=== PATIENT | male | born 1940 | race Caucasian/White ===

== ENCOUNTER 2022-12-01 11:02 | Emergency (ER) | payer MEDICARE, OTHER ==
[~2022-12-01] VITALS: Ht 167.6 cm; Wt 170.0 kg
[~2022-12-01 11:02] MED LIST: AMLO5TAB16 PO; ASPI-1264 PO; CHOL100017 PO; HYDR-3972 PO; LOSA25TA96 PO; OMEG-145 PO; ONDA4TAB12 PO; PANT40TA54 PO; POTA-207 PO; SIMV-42 PO
[2022-12-01 13:12] VITALS: BP 158/76
--- NOTE | 2022-12-01 14:00 | NUR ---
Pt given gait testing by trading analyst student and was able to ambulate about 10ft. Pt did request Tylenol for pain 04/22, and per MD order, was given 650mg. Pt states his pain is 4/10 when he sits and 8/10 when he stands.
[2022-12-01] MEDS ORDERED: acetaminophen 325mg tablet PO ONE (14:15)
== END 2022-12-01 14:50 | disposition home or self-care (01) ==
LOC: ER 11:02
DX: M25.551 Pain in right hip (principal); E78.00 Pure hypercholesterolemia, unspecified; I10 Essential (primary) hypertension; M19.90 Unspecified osteoarthritis, unspecified site; G89.29 Other chronic pain; Z72.89 Other problems related to lifestyle; Z98.890 Other specified postprocedural states; Z88.0 Allergy status to penicillin; Z88.8 Allergy status to other drugs, medicaments and biological substances; Z91.012 Allergy to eggs; Z79.899 Other long term (current) drug therapy
CPT/HCPCS: 73502; 99284

== ENCOUNTER 2022-12-02 23:38 | Emergency (ER) | payer MEDICARE, OTHER ==
[~2022-12-02] VITALS: Ht 167.6 cm; Wt 77.2 kg
[2022-12-03 00:22] VITALS: BP 124/80
[2022-12-03] MEDS ORDERED: ondansetron/PF 4mg/2ml inj IV ONE (00:30)
[2022-12-03] MEDS ORDERED: morphine 2 MG/ML inj. syringe IV ONE (00:30)
[2022-12-03] MEDS ORDERED: diazepam 5mg tablet PO ONE (01:30)
== END 2022-12-03 02:04 | disposition home or self-care (01) ==
LOC: ER 23:39
DX: M25.551 Pain in right hip (principal); I10 Essential (primary) hypertension; E78.00 Pure hypercholesterolemia, unspecified; M19.90 Unspecified osteoarthritis, unspecified site; G89.29 Other chronic pain; M54.50 Low back pain, unspecified; Z88.0 Allergy status to penicillin; Z88.4 Allergy status to anesthetic agent; Z91.012 Allergy to eggs
CPT/HCPCS: 73502; 96374; 96375; 99284; J2270; J2405

== ENCOUNTER 2024-12-22 14:33 | Inpatient (IN) | payer MEDICARE, OTHER ==
[~2024-12-22] VITALS: Ht 175.3 cm; Wt 80.0 kg
[~2024-12-22 14:33] MED LIST changes: +LOSA-415 PO; -LOSA25TA96 PO; +ONDA-243 PO; -ONDA4TAB12 PO
[2024-12-22] MEDS ORDERED: iohexol 350MG/ML 100ml bottle IV ONE (15:21)
[2024-12-22 15:22] LABS: BASOPHILS % (AUTO) 0.8 % (0-1); EOSINOPHILS # (AUTO) 0.1 X10'3 (0-0.9); EOSINOPHILS % (AUTO) 1.5 % (0-6); HEMATOCRIT 45.4 % (42.0-52.0); HEMOGLOBIN 15.4 g/dl (14.0-17.9); LYMPHOCYTES # (AUTO) 1.1 X10'3 (1.1-4.8); LYMPHOCYTES % (AUTO) 23.7 % (21-51); MEAN CORPUSCULAR HEMOGLOBIN 30.1 PG (27.0-31.0); MEAN CORPUSCULAR VOLUME 88.8 FL (78-98); MONOCYTES # (AUTO) 0.3 X10'3 (0-0.9); MONOCYTES % (AUTO) 6.8 % (2-12); NEUTROPHILS # (AUTO) 3.2 X10'3 (1.8-7.7); NEUTROPHILS % (AUTO) 67.2 % (42-75); PLATELET COUNT 197 X10'3 (140-440); RED BLOOD COUNT 5.11 X10'6 (4.70-6.10); WHITE BLOOD COUNT 4.8 X10'3 (4.5-11.0)
[2024-12-22 15:36] LABS: APTT 27 SECONDS (22-32); INR 0.9 INR; PROTHROMBIN TIME 9.9 SECONDS (9.0-12.0)
[2024-12-22 15:41] LABS: ANION GAP 9 (8-16); BLOOD UREA NITROGEN 16 MG/DL (7-18); BUN/CREATININE RATIO 18.6 (10.0-20.0); CALCIUM 9.1 MG/DL (8.5-10.1); CHLORIDE 103 MMOL/L (99-107); CREATININE 0.86 MG/DL (0.60-1.10); GLUCOSE 98 MG/DL (70-104); POTASSIUM 3.8 MMOL/L (3.5-5.1); SODIUM 140 MMOL/L (135-145); TOTAL CARBON DIOXIDE 27.8 MMOL/L (24-32); eCRCL 64 ML/MIN; eGFR 85 ML/MIN
[2024-12-22] MEDS ORDERED: mag hydrox/Alum hydrox/simeth 30ml oral suspension PO PRN (18:25)
[2024-12-22] MEDS ORDERED: acetaminophen 325mg tablet PO PRN (18:25)
[2024-12-22] MEDS ORDERED: ondansetron/PF 4mg/2ml inj IV PRN (18:25)
[2024-12-22] MEDS ORDERED: magnesium hydroxide 30ml (MOM) UD suspension PO PRN (18:25)
[2024-12-22] MEDS ORDERED: magnesium sulf-water 4G/100mL 100 ML IV PRN (18:25)
[2024-12-22] MEDS ORDERED: potassium Cl 20 mEq SR tablet PO PRN (18:25)
[2024-12-22] MEDS ORDERED: potassium Cl 40MEQ/1/2NS 520ml 520 ML IV PRN (18:25)
[2024-12-22] MEDS ORDERED: magnesium Cl slow-release 64mg tablet PO PRN (18:25)
[2024-12-22] MEDS: aspirin 81mg, enteric-coated 1 TAB TABLET.DR PO ONE (18:25)
[2024-12-22] MEDS ORDERED: magnesium sulf-water 2g/50mL 50 ML IV PRN (18:25)
[2024-12-22] MEDS: docusate sod 100mg capsule PO SCH (20:00)
[2024-12-22] MEDS: labetalol 20mg/4ml (5mg/ml) syringe IV STA (20:25)
[2024-12-22 20:49] LABS: BILIRUBIN,URINE NEGATIVE (Neg); CLARITY,URINE CLEAR (Clear); COLOR,URINE YELLOW (Yellow); GLUCOSE, URINE NEGATIVE (Neg); KETONES,URINE NEGATIVE (Neg); LEUKOCYTE ESTERASE ,URINE NEGATIVE (Neg); NITRITES, URINE NEGATIVE (Neg); OCCULT BLOOD,URINE TRACE-INTACT (Neg); PROTEIN,URINE NEGATIVE (Neg)
[2024-12-22 20:52] LABS: UA COLLECTION TYPE CLN CATCH MIDSTREAM
[2024-12-22 20:55] LABS: BACTERIA,URINE FEW /HPF (Neg); RBC,URINE 0-2 /HPF (0-2); SQUAMOUS EPITHELIAL CELL,UR FEW /LPF (FEW); WBC,URINE 0-4 /HPF (0-4)
[2024-12-22 21:46] LABS: URINE AMPHETAMINE SCREEN NEGATIVE (Neg); URINE BARBITUATE SCREEN NEGATIVE (Neg); URINE BENZODIAZEPINES SCREEN NEGATIVE (Neg); URINE CANNABINOID SCREEN NEGATIVE (Neg); URINE COCAINE SCREEN NEGATIVE (Neg); URINE METHADONE SCREEN NEGATIVE (Neg); URINE OPIATE SCREEN NEGATIVE (Neg); URINE PHENCYCLIDINE SCREEN NEGATIVE (Neg)
[2024-12-22] MEDS: clopidogrel 75mg tablet PO ONE (22:06)
[2024-12-22] MEDS: amLODIPine 5mg tablet PO ONE (22:07)
[2024-12-22] MEDS: atorvastatin 20mg tablet PO SCH (22:07)
[2024-12-22] MEDS: aspirin 81mg tab.chew PO ONE (22:08)
[2024-12-22] MEDS: losartan 25mg tablet PO STA (22:15)
[2024-12-23] MEDS: PERFLUTREN PROTEIN-A MICROSPHR (Optison) 0.22 MG/ML 3ML VIAL IV ONE (00:14)
[2024-12-23 00:40] VITALS: BP 159/54; PULSE 65; RESP 15; TEMP 97.4; O2SAT 96
[2024-12-23 01:00] VITALS: RESP 18
[2024-12-23 06:00] VITALS: BP 149/74; PULSE 77; RESP 15; TEMP 98.5; O2SAT 97
[2024-12-23 06:12] LABS: BASOPHILS % (AUTO) 0.5 % (0-1); EOSINOPHILS # (AUTO) 0.1 X10'3 (0-0.9); EOSINOPHILS % (AUTO) 2.5 % (0-6); HEMATOCRIT 43.9 % (42.0-52.0); LYMPHOCYTES # (AUTO) 1.3 X10'3 (1.1-4.8); MEAN CORPUSCULAR HEMOGLOBIN 30.1 PG (27.0-31.0); MEAN CORPUSCULAR HGB CONC 34.1 g/dL (33.0-36.5); MEAN CORPUSCULAR VOLUME 88.4 FL (78-98); MEAN PLATELET VOLUME 9.4 FL (7.4-10.4); MONOCYTES # (AUTO) 0.5 X10'3 (0-0.9); MONOCYTES % (AUTO) 10.1 % (2-12); NEUTROPHILS # (AUTO) 3.4 X10'3 (1.8-7.7); NEUTROPHILS % (AUTO) 62.9 % (42-75); PLATELET COUNT 189 X10'3 (140-440); RED BLOOD COUNT 4.97 X10'6 (4.70-6.10); RED CELL DISTRIBUTION WIDTH 15.1 % (11.5-14.5); WHITE BLOOD COUNT 5.4 X10'3 (4.5-11.0)
[2024-12-23 06:36] LABS: ALANINE AMINOTRANSFERASE 13 U/L (12-78); ALBUMIN 3.6 G/DL (3.4-5.0); ALBUMIN/GLOBULIN RATIO 1.2 (1.1-1.5); ALKALINE PHOSPHATASE 49 IU/L (46-116); ANION GAP 10 (8-16); ASPARTATE AMINO TRANSFERASE 14 U/L (10-37); BLOOD UREA NITROGEN 12 MG/DL (7-18); BUN/CREATININE RATIO 15.8 (10.0-20.0); CHLORIDE 103 MMOL/L (99-107); CHOL/HDL RATIO 3.2 (0.00-4.99); CHOLESTEROL 190 MG/DL (0-200); CREATININE 0.76 MG/DL (0.60-1.10); GLUCOSE 90 MG/DL (70-104); HDL CHOLESTEROL 59 MG/DL (35-60); LDL CHOLESTEROL 105 MG/DL (50-100); MAGNESIUM 1.8 MG/DL (1.5-2.4); POTASSIUM 3.4 MMOL/L (3.5-5.1); SODIUM 138 MMOL/L (135-145); THYROID STIMULATING HORMONE 2.67 ulU/ml (0.34-4.50); TOTAL CARBON DIOXIDE 25.3 MMOL/L (24-32); TOTAL PROTEIN 6.5 G/DL (6.4-8.2); TRIGLYCERIDES 146 MG/DL (20-135); eCRCL 72 ML/MIN; eGFR > 90 ML/MIN
[2024-12-23 06:57] LABS: HEMOGLOBIN A1C 5.5 % (4.5-6.2)
[2024-12-23] MEDS: aspirin 81mg, enteric-coated 1 TAB TABLET.DR PO SCH (08:07)
[2024-12-23] MEDS: potassium Cl 20 mEq SR tablet PO PRN (08:08)
[2024-12-23] MEDS: amLODIPine 5mg tablet PO SCH (08:08)
[2024-12-23] MEDS: losartan 50mg tablet PO SCH (08:08)
[2024-12-23 10:00] VITALS: BP 122/56; PULSE 73; RESP 16; TEMP 97.7; O2SAT 94
[2024-12-23 18:00] VITALS: BP 137/80; PULSE 60; RESP 16; TEMP 98.1; O2SAT 96
[2024-12-23 22:00] VITALS: BP 144/60; PULSE 77; RESP 17; TEMP 98.1; O2SAT 98
[2024-12-24] VITALS (8 sets, daily range): BP systolic 110–153; BP diastolic 57–78; PULSE 60–77; RESP 14–18; TEMP 97.3–98.7; O2SAT 95–98
[2024-12-24 06:18] LABS: BASOPHILS % (AUTO) 0.7 % (0-1); EOSINOPHILS # (AUTO) 0.2 X10'3 (0-0.9); EOSINOPHILS % (AUTO) 3.1 % (0-6); HEMATOCRIT 43.9 % (42.0-52.0); LYMPHOCYTES # (AUTO) 1.3 X10'3 (1.1-4.8); MEAN CORPUSCULAR HEMOGLOBIN 30.3 PG (27.0-31.0); MEAN CORPUSCULAR HGB CONC 34.3 g/dL (33.0-36.5); MEAN CORPUSCULAR VOLUME 88.3 FL (78-98); MEAN PLATELET VOLUME 9.1 FL (7.4-10.4); MONOCYTES # (AUTO) 0.5 X10'3 (0-0.9); MONOCYTES % (AUTO) 9.7 % (2-12); NEUTROPHILS % (AUTO) 60.5 % (42-75); PLATELET COUNT 184 X10'3 (140-440); RED BLOOD COUNT 4.97 X10'6 (4.70-6.10); RED CELL DISTRIBUTION WIDTH 14.6 % (11.5-14.5)
[2024-12-24 06:29] LABS: ALANINE AMINOTRANSFERASE 13 U/L (12-78); ALBUMIN 3.4 G/DL (3.4-5.0); ALBUMIN/GLOBULIN RATIO 1.1 (1.1-1.5); ALKALINE PHOSPHATASE 48 IU/L (46-116); ANION GAP 8 (8-16); ASPARTATE AMINO TRANSFERASE 14 U/L (10-37); BILIRUBIN,TOTAL 0.9 MG/DL (0.1-1.0); BLOOD UREA NITROGEN 20 MG/DL (7-18); CALCIUM 8.9 MG/DL (8.5-10.1); CHLORIDE 104 MMOL/L (99-107); GLUCOSE 100 MG/DL (70-104); MAGNESIUM 1.9 MG/DL (1.5-2.4); POTASSIUM 4.1 MMOL/L (3.5-5.1); SODIUM 137 MMOL/L (135-145); TOTAL PROTEIN 6.4 G/DL (6.4-8.2)
[2024-12-24 06:35] LABS: BUN/CREATININE RATIO 24.4 (10.0-20.0); CREATININE 0.82 MG/DL (0.60-1.10); eCRCL 67 ML/MIN; eGFR 90 ML/MIN
[2024-12-24] MEDS ORDERED: ASPI-1071 PO (08:07)
[2024-12-24] MEDS: normal saline 1000ml 1,000 ML IV SCH (16:15)
[2024-12-24] MEDS: levetiracetam 250mg tablet PO SCH (21:04)
[2024-12-25] MEDS: hydrALAZINE 20mg/ml inj. IV PRN (05:50)
[2024-12-25 06:00] VITALS: BP 175/86; PULSE 70; RESP 16; TEMP 97.9; O2SAT 96
[2024-12-25 06:43] LABS: BASOPHILS % (AUTO) 0.7 % (0-1); EOSINOPHILS # (AUTO) 0.2 X10'3 (0-0.9); EOSINOPHILS % (AUTO) 3.4 % (0-6); HEMATOCRIT 42.2 % (42.0-52.0); HEMOGLOBIN 14.3 g/dl (14.0-17.9); LYMPHOCYTES # (AUTO) 1.3 X10'3 (1.1-4.8); LYMPHOCYTES % (AUTO) 28.6 % (21-51); MEAN CORPUSCULAR HEMOGLOBIN 29.9 PG (27.0-31.0); MEAN CORPUSCULAR VOLUME 88.1 FL (78-98); MEAN PLATELET VOLUME 9.2 FL (7.4-10.4); MONOCYTES # (AUTO) 0.4 X10'3 (0-0.9); MONOCYTES % (AUTO) 8.8 % (2-12); NEUTROPHILS # (AUTO) 2.7 X10'3 (1.8-7.7); NEUTROPHILS % (AUTO) 58.5 % (42-75); PLATELET COUNT 178 X10'3 (140-440); RED BLOOD COUNT 4.79 X10'6 (4.70-6.10); WHITE BLOOD COUNT 4.6 X10'3 (4.5-11.0)
[2024-12-25 07:19] LABS: ALANINE AMINOTRANSFERASE 17 U/L (12-78); ALBUMIN 3.4 G/DL (3.4-5.0); ALBUMIN/GLOBULIN RATIO 1.3 (1.1-1.5); ALKALINE PHOSPHATASE 47 IU/L (46-116); ANION GAP 10 (8-16); ASPARTATE AMINO TRANSFERASE 8 U/L (10-37); BLOOD UREA NITROGEN 20 MG/DL (7-18); BUN/CREATININE RATIO 22.5 (10.0-20.0); CALCIUM 8.5 MG/DL (8.5-10.1); CHLORIDE 105 MMOL/L (99-107); CREATININE 0.89 MG/DL (0.60-1.10); GLUCOSE 92 MG/DL (70-104); MAGNESIUM 1.9 MG/DL (1.5-2.4); POTASSIUM 3.9 MMOL/L (3.5-5.1); SODIUM 139 MMOL/L (135-145); TOTAL CARBON DIOXIDE 24.3 MMOL/L (24-32); TOTAL PROTEIN 6.1 G/DL (6.4-8.2); eCRCL 62 ML/MIN; eGFR 81 ML/MIN
[2024-12-25] MEDS ORDERED: LEVE250T PO (07:27)
[2024-12-25 10:00] VITALS: BP 139/76; PULSE 79; RESP 16; TEMP 97.5; O2SAT 96
[2024-12-25] MEDS ORDERED: CLOP75TA34 PO (18:57)
== END 2024-12-25 10:35 | disposition home or self-care (01) | DRG 304 ==
LOC: ER 14:33 → ED HOLD 18:25 → ORTHO 4S 12-23 00:40
PROVIDERS: ADMIT Nurse Practitioner Family; ATTEND Nurse Practitioner Family
PROC: B3251ZZ Computerized Tomography (CT Scan) of Bilateral Common Carotid Arteries using Low Osmolar Contrast (ICD-10-PCS; 2024-12-22)
PROC: B32G1ZZ Computerized Tomography (CT Scan) of Bilateral Vertebral Arteries using Low Osmolar Contrast (ICD-10-PCS; 2024-12-22)
PROC: B32R1ZZ Computerized Tomography (CT Scan) of Intracranial Arteries using Low Osmolar Contrast (ICD-10-PCS; 2024-12-22)
PROC: B3281ZZ Computerized Tomography (CT Scan) of Bilateral Internal Carotid Arteries using Low Osmolar Contrast (ICD-10-PCS; 2024-12-22)
PROC: 4A00X4Z Measurement of Central Nervous Electrical Activity, External Approach (ICD-10-PCS; principal; 2024-12-24)
DX: I16.1 Hypertensive emergency (principal); G93.41 Metabolic encephalopathy; I10 Essential (primary) hypertension; F03.90 Unspecified dementia, unspecified severity, without behavioral disturbance, psychotic disturbance, mood disturbance, and anxiety; R56.9 Unspecified convulsions; E78.00 Pure hypercholesterolemia, unspecified; Z88.0 Allergy status to penicillin; Z88.4 Allergy status to anesthetic agent; Z91.012 Allergy to eggs; Z79.899 Other long term (current) drug therapy; Z79.82 Long term (current) use of aspirin
CPT/HCPCS: 36415; 70450; 70496; 70498; 70551; 71045; 80048; 80053; 80061; 80305; 81001; 82948; 83036; 83605; 83735; 84145; 84443; 85025; 85610; 85730; 87081; 92508; 92616; 93005; 93306; 95816; 97116; 97161; 97530; 99291; A6223; A6258; A6449; G0378; J0360; J7030; Q9967

== ENCOUNTER 2025-03-09 15:50 | Emergency (ER) | payer MEDICARE, OTHER ==
[~2025-03-09] VITALS: Ht 170.2 cm; Wt 73.1 kg
[~2025-03-09 15:50] MED LIST changes: -AMLO5TAB16 PO; +ASPI-1071 PO; -ASPI-1264 PO; +CLOP75TA34 PO; +LEVE250T PO; -LOSA-415 PO
--- NOTE | 2025-03-09 18:35 | Physician Documentation ---
History of Present Illness ~ Chief Complaint: Hypertension Stated Complaint: HIGH BLOOD PRESSURE Time Seen by MD: 18:26 Primary Medical Doctor: Damion Whyte MD HPI 40-year-old male presents to the ED with a complaint of hypertension x1 day. States his systolic was over 200 a day. However he denies any chest pain shortness of breath headaches dizziness changes in vision Medication Reconciliation Allergies: Coded Allergies: Penicillins (Verified Allergy, Unknown, HIVES, 12/22/24) lidocaine (Verified Allergy, Unknown, 12/22/24) egg (Verified Adverse Reaction, Severe, vomitting, 12/22/24) Scheduled Aspirin (Ecotrin*), 1 TAB PO DAILY Cholecalciferol (Vitamin D3) (Vitamin D3), 1 TAB PO DAILY, (Reported) Clopidogrel Bisulfate (Clopidogrel), 1 TAB PO DAILY Levetiracetam (Levetiracetam), 500 MG PO BID [place]-3 Fatty Acids/Fish Oil ([place]-3 Fish Oil 1,000 mg Sfgl), 1 CAP PO DAILY, (Reported) Pantoprazole Sodium (Pantoprazole Sodium), 1 TAB PO DAILY, (Reported) Potassium Chloride* (K-Dur*), 1 TAB PO DAILY Simvastatin* (Zocor*), 1 TAB PO HS, (Reported) Scheduled PRN Hydrocodone Bit/Acetaminophen (Hydrocodon-Acetaminophn 10-325 tablet), 1 TAB PO Q4H PRN for SEVERE PAIN 7-10 ONDANSETRON ODT 4mg tablet (Ondansetron Odt), 4 MG PO Q6H PRN for nausea/vomiting Past Medical History Past Medical History: High Cholesterol, Hypertension, Arthritis, Chronic Back Pain Past Surgical History: orthopedic surgeries Alcohol Use: Occasionally Drug Use: none Lives with: Other Lives In: Home Review of Systems All Other Systems at this time: Reviewed and Negative ROS As stated above in the HPI, otherwise all systems are reviewed and negative. Physical Exam Vital Signs: BP: 166/84, Weight: 73.100 Physical Exam General: Alert, no apparent distress. Respiratory: Lungs clear, no respiratory distress. Cardiovascular: Regular rate and rhythm, no murmurs. Neurologic: Oriented x4. Psychiatric: Normal mood and affect. Skin: Normal color, warm and dry. No edema, no ecchymosis. Progress Results/Orders Results/Orders Vital Signs 03/09/25 03/09/25 03/09/25 15:54 18:42 18:47 Temp 98.0 98.0 Pulse 73 73 Resp 16 16 B/P (MAP) 166/84 157/86 (109) 157/86 Pulse Ox 95 95 O2 Flow Rate 0 Medical Decision Making Findings Patient remained asymptomatic throughout her stay in the ED. his blood pressure regularly related down to the 150 systolic. He has medications at home which he is supposed to be taking and agrees to do so. currently meets criteria for safe discharge and outpatient therapy Differential Dx:Considerations: Include CHF, Include HTN, essential, Include HTN, accelerated, Include HTN, malignant, Include HTN, encephalopathy, Include medical noncompliance, Include medication withdrawal, Include pulmonary edema, Include renal failure, Include -induced, Include other Departure Disposition: 01 HOME / SELF CARE / HOMELESS Impression: Primary Impression: Benign hypertension Condition: Stable Discharge Instructions: Hypertension, Adult Referrals: NO PRIMARY CARE PROVIDER (PCP) Signature Scribe Signature: [email or web address] Attestation: The note accurately reflects work and decisions made by me.Allan Horton NP 03/09/25 23:56 ALLAN BROWN NP March 09, 2025 18:35
[2025-03-09 18:47] VITALS: BP 157/86; PULSE 73; RESP 16; TEMP 98; O2SAT 95
== END 2025-03-09 18:47 | disposition home or self-care (01) ==
LOC: ER 15:50
DX: I10 Essential (primary) hypertension (principal); E78.00 Pure hypercholesterolemia, unspecified; M19.90 Unspecified osteoarthritis, unspecified site; Z88.0 Allergy status to penicillin; Z79.82 Long term (current) use of aspirin
CPT/HCPCS: 99281